=== PATIENT | female | born 1980 | race Caucasian/White ===

== ENCOUNTER 2017-10-21 19:34 | Emergency (ER) | payer BC ==
[2017-10-21 21:23] VITALS: BP 112/67
--- NOTE | 2017-10-21 21:47 | UC ---
Ear Complaint HPI - HPI Summary HPI Summary: Pt presents with left ear pain for 2 weeks that seems to be getting more constant. She tells me that she had a cold about 3-4 weeks ago and ever since that time her left ear has felt plugged and intermittently painful. It will feel better with auricle manipulation and with turning her head to the opposite side. She has not tried anything OTC for this. Denies fever, chills, decreased hearing, sore throat, or sinus symptoms. - History of Current Complaint Chief Complaint: UCEar Stated Complaint: L EAR PAIN Time Seen by Provider: 10/21/17 21:29 Hx Obtained From: Patient Hx Last Menstrual Period: 10/04/17 Onset/Duration: Gradual Onset Severity Initially: Mild Severity Currently: Mild Pain Intensity: 1 Pain Scale Used: 0-10 Numeric - Allergies/Home Medications Allergies/Adverse Reactions: Allergies Allergy/AdvReac Type Severity Reaction Status Date / Time latex Allergy Severe RASH, Verified 10/21/17 21:23 ITCHING PMH/Surg Hx/FS Hx/Imm Hx Previously Healthy: Yes - Surgical History Surgical History: None - Family History Known Family History: Positive: None - Social History Occupation: Employed Full-time Lives: With Family Alcohol Use: None Substance Use Type: None Smoking Status (MU): Never Smoked Tobacco - Immunization History Most Recent Influenza Vaccination: none Most Recent Tetanus Shot: 08/02/12 Most Recent Pneumonia Vaccination: none Review of Systems Constitutional: Negative Skin: Negative Eyes: Negative ENT: Ear Ache Respiratory: Negative Cardiovascular: Negative Gastrointestinal: Negative Neurological: Negative Psychological: Negative All Other Systems Reviewed And Are Negative: Yes Physical Exam Triage Information Reviewed: Yes Appearance: Well-Appearing, No Pain Distress, Well-Nourished Vital Signs: Initial Vital Signs Temp 97.9 F 10/21/17 21:20 Pulse 73 10/21/17 21:20 Resp 16 10/21/17 21:20 BP 112/67 10/21/17 21:20 Pulse Ox 100 10/21/17 21:20 Vital Signs Reviewed: Yes Eyes: Positive: Conjunctiva Clear. Negative: Conjunctiva Inflamed, Discharge ENT: Positive: Hearing grossly normal, Pharynx normal, TMs normal, Uvula midline. Negative: Pharyngeal erythema, Nasal congestion, Nasal drainage, TM bulging, TM dull, TM red, Tonsillar swelling, Tonsillar exudate, Hoarse voice, Sinus tenderness Neck: Positive: Supple, Nontender, No Lymphadenopathy Respiratory: Positive: Chest non-tender, Lungs clear, Normal breath sounds, No respiratory distress, No accessory muscle use Cardiovascular: Positive: RRR, No Murmur, Pulses Normal Neurological: Positive: Alert Psychological: Positive: Age Appropriate Behavior Skin: Negative: rashes Ear Complaint Course/Dx - Course Course Of Treatment: Suspect eustachian tube dysfunction left ear - flonase and claritin - Differential Dx/Diagnosis Provider Diagnoses: eustachian tube dysfunction left Discharge - Discharge Plan Condition: Stable Disposition: HOME Prescriptions: Fluticasone NASAL SPRAY 50MCG* [Flonase NASAL SPRAY 50MCG*] 1 spray BOTH NARES DAILY #1 btl Loratadine [Claritin] 10 mg PO DAILY #30 tablet Patient Education Materials: Earache (ED) Referrals: Ifrah Cordero MD [Primary Care Provider] - Additional Instructions: If you develop a fever, shortness of breath, chest pain, new or worsening symptoms - please call your PCP or go to the ED. 1) May try Ryan's earache drops OTC for any ear pain
== END 2017-10-21 21:53 | disposition home or self-care (01) ==
LOC: UCEAST 19:34
DX: H69.82 Other specified disorders of Eustachian tube, left ear (principal)
CPT/HCPCS: 99212; G0463

== ENCOUNTER 2018-11-25 13:50 | Emergency (ER) | payer BC ==
--- NOTE | 2018-11-25 14:16 | ED ---
HPI Chest Pain - HPI Summary HPI Summary: Patient is a 38 y/o female who presents to the ED c/o CP. She began having intermittent chest tightness 2-3 days ago. The CP is mid-sternal, and is somewhat alleviated by pressing down on her chest. Patient also c/o numbness and paresthesia of her LUE, and intermittent SOB. She denies any nausea, fever, chills, LE edema, or abdominal pain. Each episode lasts about 15-20 minutes. Her last episode was at 13:00 today and lasted about one hour. She denies any current pain. Patient called her PCP who instructed her to come to the ED. She denies any recent long travel, procedures, or hospitalizations. - History of Current Complaint Chief Complaint: EDChestPainROMI Time Seen by Provider: 11/25/18 14:11 Hx Obtained From: Patient Hx Last Menstrual Period: 10/04/17 Onset/Duration: Started Days Ago - 2-3, Resolved Timing: Intermittent Current Severity: None Pain Intensity: 0 Pain Scale Used: 0-10 Numeric Chest Pain Location: Mid Sternal Character: Tightness Aggravating Factor(s): Nothing Alleviating Factor(s): Other: - pressing on her chest Associated Signs and Symptoms: Positive: Chest Pain, Numbness - LUE, Tingling - LUE, Shortness of Breath - intermittent. Negative: Fever, Chills, Nausea, Abdominal Pain, Edema - Allergy/Home Medications Allergies/Adverse Reactions: Allergies Allergy/AdvReac Type Severity Reaction Status Date / Time latex Allergy Severe RASH, Verified 11/25/18 14:02 ITCHING PMH/Surg Hx/FS Hx/Imm Hx Endocrine/Hematology History: Denies: Hx Diabetes, Hx Thyroid Disease Cardiovascular History: Denies: Hx Hypertension Respiratory History: Denies: Hx Asthma History: Denies: Hx Kidney Infection Psychiatric History: Denies: Hx Anxiety, Hx Depression, Other Psychiatric Issues/Disorders Infectious Disease History: No Infectious Disease History: Denies: Traveled Outside the [place] in Last 30 Days - Family History Known Family History: Positive: Cardiac Disease - heart murmur, Diabetes, Other - leukemia - Social History Alcohol Use: None Hx Substance Use: No Substance Use Type: Reports: None Hx Tobacco Use: No Smoking Status (MU): Never Smoked Tobacco Review of Systems Negative: Fever, Chills Positive: Chest Pain - intermittent Positive: Shortness Of Breath - intermittent Negative: Abdominal Pain, Nausea Negative: Edema - LE Positive: Paresthesia - LUE, Numbness - LUE All Other Systems Reviewed And Are Negative: Yes Physical Exam - Summary Physical Exam Summary: Constitutional: Well-developed, Well-nourished, Alert. (-) Distressed Skin: Warm, Dry HENT: Normocephalic; Atraumatic Eyes: Conjunctiva normal Neck: Musculoskeletal ROM normal neck. (-) JVD, (-) Stridor, (-) Tracheal deviation Cardio: Rhythm regular, rate normal, Heart sounds normal; Intact distal pulses; The pedal pulses are 2+ and symmetric. Radial pulses are 2+ and symmetric. (-) Murmur Pulmonary/Chest wall: Effort normal. (-) Respiratory distress, (-) Wheezes, (-) Rales Abd: Soft, (-) tenderness, (-) Distension, (-) Guarding, (-) Rebound Musculoskeletal: (-) Edema Lymph: (-) Cervical adenopathy Neuro: Alert, Oriented x3 Psych: Mood and affect Normal Triage Information Reviewed: Yes Vital Signs On Initial Exam: Initial Vitals Temp Pulse Resp BP Pulse Ox 98.2 F 91 16 127/77 100 11/25/18 13:55 11/25/18 13:55 11/25/18 13:55 11/25/18 13:55 11/25/18 13:55 Vital Signs Reviewed: Yes Diagnostics - Vital Signs Vital Signs Temp Pulse Resp BP Pulse Ox 11/25/18 13:55 98.2 F 91 16 127/77 100 - Laboratory Result Diagrams: 11/25/18 14:25 11/25/18 14:25 Lab Statement: Any lab studies that have been ordered have been reviewed, and results considered in the medical decision making process. - Radiology CXR Radiology Interpretation Completed By: Radiologist Summary of Radiographic Findings: HYPERINFLATION WHICH CAN BE SEEN WITH REACTIVE AIRWAY DISEASE. NO ACTIVE CARDIOPULMONARY DISEASE. ED physician reviewed radiology report. - EKG 14:07 Cardiac Rate: NL - 80 bpm EKG Rhythm: Sinus Rhythm ST Segment: Normal Summary of EKG Findings: Normal OH, normal QRS, normal QTc, normal axis, normal ST, flattened T-waves in II, III, and AVF, non-specific EKG. Re-Evaluation - Re-Evaluation First Eval Re-Evaluation Time: 17:50 Change: Improved Comment: Pt feels much better. Chest Pain Course/Dx - Course Course Of Treatment: Patient is a 38 y/o female who presents to the ED c/o intermittent chest tightness, numbness and paresthesia of her LUE, and intermittent SOB. A physical exam was unremarkable. A CXR revealed HYPERINFLATION WHICH CAN BE SEEN WITH REACTIVE AIRWAY DISEASE. NO ACTIVE CARDIOPULMONARY DISEASE. An EKG revealed a rate of 80 bpm, flattened T-waves in II, III, and AVF, non-specific EKG. Bloodwork was unremarkable, Final dx is chest pain. She is discharged home and is agreeable with this plan. - Diagnoses Provider Diagnoses: Chest pain Discharge - Sign-Out/Discharge Documenting (check all that apply): Patient Departure - Discharge Patient Received Moderate/Deep Sedation with Procedure: No - Discharge Plan Condition: Good Disposition: HOME Patient Education Materials: Chest Pain (ED) Print Language: ETHIOPIAN Referrals: Ifrah Cordero MD [Primary Care Provider] - - Billing Disposition and Condition Condition: GOOD Disposition: Home - Attestation Statements Document Initiated by Yumiko: Yes Documenting Scribe: Asmita Flowers Provider For Whom Yumiko is Documenting (Include Credential): Isabel Roe MD Scribe Attestation: Asmita Garza scribed for Isabel Rocha MD on 11/25/18 at 2224. Scribe Documentation Reviewed: Yes Provider Attestation: The documentation as recorded by the Asmita fuentes accurately reflects the service I personally performed and the decisions made by me, Isabel Roe MD Status of Scribe Document: Viewed
[2018-11-25 14:35] LABS: ABS Basophils 0 10^3/ul (0-0.2); ABS Eosinophils 0.2 10^3/ul (0-0.6); ABS Lymphocytes 1.3 10^3/ul (1.0-4.8); ABS Monocytes 0.3 10^3/ul (0-0.8); ABS Neutrophils 4.1 10^3/ul (1.5-7.7); ABS Nucleated RBC 0 10^3/ul; Eosinophil % 3.2 %; Hematocrit 41 % (35-47); Lymphocyte % 22.5 %; Mean Corpuscular HGB Conc 34 g/dl (31-36); Mean Corpuscular Hemoglobin 31 pg (27-31); Mean Corpuscular Volume 91 fL (80-97); Mean Platelet Volume 9.1 fL (7.4-10.4); Nucleated Red Blood Cells % 0; Platelet Count 176 10^3/ul (150-450); Red Blood Count 4.53 10^6/ul (4.00-5.40); Red Cell Distribution Width 13 % (10.5-15); White Blood Count 5.9 10^3/ul (3.5-10.8)
[2018-11-25 15:04] LABS: HCG Pregnancy < 0.60 mIU/mL
[2018-11-25 15:08] LABS: ALT 11 U/L (7-52); AST 13 U/L (13-39); Albumin 4.4 g/dL (3.2-5.2); Albumin/Globulin Ratio 1.9 (1-3); Alkaline Phosphatase 39 U/L (34-104); Anion Gap 9 mmol/L (2-11); BUN/Creatinine Ratio 24.2 (8-20); Blood Urea Nitrogen 16 mg/dL (6-24); CO2 Carbon Dioxide 25 mmol/L (22-32); Calcium 9.1 mg/dL (8.6-10.3); Chloride 107 mmol/L (101-111); EGFR African American 122.6 (>60); EGFR Non-African American 101.3 (>60); Globulin 2.3 g/dL (2-4); Glucose 109 mg/dL (70-100); Potassium 3.8 mmol/L (3.5-5.0); Sodium 141 mmol/L (135-145); Total Protein 6.7 g/dL (6.4-8.9)
[2018-11-25 18:21] VITALS: BP 114/76
== END 2018-11-25 18:21 | disposition home or self-care (01) ==
LOC: ED 13:50
DX: R07.89 Other chest pain (principal); R20.0 Anesthesia of skin; R20.2 Paresthesia of skin; R06.02 Shortness of breath; Z91.040 Latex allergy status; Z82.49 Family history of ischemic heart disease and other diseases of the circulatory system; Z83.3 Family history of diabetes mellitus; Z80.6 Family history of leukemia
CPT/HCPCS: 36415; 71046; 80053; 84484; 84702; 85025; 85379; 93005; 99282